=== PATIENT | female | born 1985 | race Caucasian/White ===

== ENCOUNTER 2024-08-19 20:39 | Emergency (ER) | payer OTHER ==
[2024-08-19 20:46] VITALS: TEMP 98.8
--- NOTE | 2024-08-19 21:29 | RADIOLOGY REPORT ---
CHEST RADIOGRAPH Indication: EPI GASTRIC PAIN Technique: Single frontal view of the chest was obtained Comparison: None FINDINGS: Lines and Tubes: None Lungs: No focal consolidation. Pleura: No effusion. No pneumothorax. Cardiomediastinal contours: Unremarkable Bones: No acute osseous abnormality. IMPRESSION: No acute cardiopulmonary disease.
[2024-08-19 22:58] VITALS: BP 116/82; PULSE 63; RESP 16; O2SAT 98
[2024-08-19 22:58] LABS: BASOPHILS % (AUTO) 0.4 % (0-1); EOSINOPHILS # (AUTO) 0.7 X10'3 (0-0.9); EOSINOPHILS % (AUTO) 4.9 % (0-6); HEMATOCRIT 37.1 % (35.0-45.0); HEMOGLOBIN 12.7 g/dl (12.0-16.0); LYMPHOCYTES # (AUTO) 1.8 X10'3 (1.1-4.8); LYMPHOCYTES % (AUTO) 13.4 % (21-51); MEAN CORPUSCULAR HEMOGLOBIN 30.6 PG (27.0-31.0); MEAN CORPUSCULAR HGB CONC 34.1 g/dL (33.0-36.5); MEAN CORPUSCULAR VOLUME 89.7 FL (78-98); MONOCYTES # (AUTO) 0.9 X10'3 (0-0.9); MONOCYTES % (AUTO) 6.9 % (2-12); NEUTROPHILS # (AUTO) 9.9 X10'3 (1.8-7.7); NEUTROPHILS % (AUTO) 74.4 % (42-75); PLATELET COUNT 214 X10'3 (140-440); RED BLOOD COUNT 4.14 X10'6 (4.20-5.60); RED CELL DISTRIBUTION WIDTH 12.6 % (11.5-14.5); WHITE BLOOD COUNT 13.3 X10'3 (4.5-11.0)
[2024-08-19 23:18] LABS: ALBUMIN 3.8 G/DL (3.4-5.0); ANION GAP 6 (8-16); BLOOD UREA NITROGEN 11 MG/DL (7-18); BUN/CREATININE RATIO 15.1 (10.0-20.0); CALCIUM 9.4 MG/DL (8.5-10.1); CHLORIDE 106 MMOL/L (99-107); CREATININE 0.73 MG/DL (0.40-0.90); GLUCOSE 88 MG/DL (70-104); POTASSIUM 4.3 MMOL/L (3.5-5.1); PRO BRAIN NATRIURETIC PEPTIDE 66 PG/ML (0-125); SODIUM 141 MMOL/L (135-145); TOTAL CARBON DIOXIDE 28.9 MMOL/L (24-32); eGFR 89 ML/MIN
--- NOTE | 2024-08-19 23:41 | Physician Documentation ---
History of Present Illness ~ Chief Complaint: Chest Wall Pain Stated Complaint: CHEST PAIN Time Seen by MD: 22:30 HPI This is a 39-year-old female who presents with epigastric and sternal chest pain described as pressure onset at rest that had an episode of radiation to left arm described as numbness lasting several hours today, patient reports the chest pain has resolved. Patient reports that chest pain was accompanied by small amount of shortness of breath as the pain was worsened by taking deep breaths and felt like as if she could not take a full breath, otherwise patient reports no provoking or palliating factors. Patient reports no cardiac history in herself or in her family. Patient reports no associated nausea or vomiting, or diaphoresis. Medication Reconciliation Allergies: Coded Allergies: No Known Allergies (Unverified , 08/19/24) Past Medical History Past Medical History: No Pertinent History Review of Systems ROS Sternal chest pain as stated above in the HPI, otherwise all systems are reviewed and negative. Physical Exam Vital Signs: Temperature: 98.8, Source: Temporal, Heart Rate: 63, Respiratory Rate: 16, BP: 116/82, Pulse Oximetry: 98 Oxygen Flow Rate: 0 Physical Exam VITALS: Reviewed and as above. GENERAL: Alert, nontoxic appearing, no apparent distress. RESPIRATORY: No increased work of breathing, no respiratory distress, speaking in full clear sentences, lung sounds clear in all harden CHEST: Nontender to palpation CV: Regular rate and rhythm no murmur BACK: No CVA tenderness Progress Results/Orders Results/Orders Orders - KWASI MOORE [employer] Monitor (08/19/24 22:38) Saline Lock (08/19/24 22:38) Oxygen (08/19/24 22:38) Completed Orders - KWASI MOORE [employer] Cbc/Diff (08/19/24 22:38) BMP (08/19/24 22:38) PBNP (08/19/24 22:38) Hs Troponin I W Calculations (08/19/24 22:38) Vital Signs 08/19/24 08/19/24 08/19/24 20:46 22:42 22:58 Temp 98.8 Pulse 72 63 Resp 16 16 B/P (MAP) 130/72 116/82 (93) Pulse Ox 97 98 O2 Flow Rate 0 0 Laboratory Tests Test 08/19/24 22:49 White Blood Count 13.3 H Red Blood Count 4.14 L Hemoglobin 12.7 Hematocrit 37.1 Mean Corpuscular Volume 89.7 Mean Corpuscular Hemoglobin 30.6 Mean Corpuscular Hemoglobin Concent 34.1 Red Cell Distribution Width 12.6 Platelet Count 214 Mean Platelet Volume 9.0 Neutrophils (%) (Auto) 74.4 Lymphocytes (%) (Auto) 13.4 L Monocytes (%) (Auto) 6.9 Eosinophils (%) (Auto) 4.9 Basophils (%) (Auto) 0.4 Neutrophils # (Auto) 9.9 H Lymphocytes # (Auto) 1.8 Monocytes # (Auto) 0.9 Eosinophils # (Auto) 0.7 Basophils # (Auto) 0.0 CBC Comment Sodium Level 141 Potassium Level 4.3 Chloride Level 106 Carbon Dioxide Level 28.9 Anion Gap 6 L Blood Urea Nitrogen 11 Creatinine 0.73 Estimated GFR/1.73 m2 89 BUN/Creatinine Ratio 15.1 Glucose Level 88 Calcium Level 9.4 Troponin I High Sensitivity 6 Pro-B-Type Natriuretic Peptide 66 Albumin 3.8 Chemistry Comments EKG/XRAY/CT/US/VASC/MRI EKG : Additional Comment EKG at 2053 interpreted my self as sinus rhythm at a rate of 70, normal axis, no ST segment elevation or depression Chest X-Ray : Additional Comments CHEST RADIOGRAPH Indication: EPI GASTRIC PAIN Technique: Single frontal view of the chest was obtained Comparison: None FINDINGS: Lines and Tubes: None Lungs: No focal consolidation. Pleura: No effusion. No pneumothorax. Cardiomediastinal contours: Unremarkable Bones: No acute osseous abnormality. IMPRESSION: No acute cardiopulmonary disease. Electronically Signed by:ANKITA ZAPIEN DO Date & Time: 08/19/242125 Dictated by: ANKITA ZAPIEN DO Dictation date and time: 08/19/242113 I have reviewed and agree with the radiology report. I have reviewed and interpreted the imaging as: No focal consolidation or pneumothorax Heart Score: Heart Score Response (Comments) Value History Moderate Suspicious 1 EKG Normal 0 Age <45 0 Risk Factors No known risk factors 0 Troponin Normal limit 0 Total 1 Medical Decision Making Findings This is a 39-year-old female presented with epigastric and sternal chest pain described as pressure onset at rest with an episode of radiation to her left arm that has now resolved, report of chest pain with radiation was suspicious though it is reassuring troponins were not elevated and EKG did not demonstrate evidence of ischemia infarction. Additionally it was reassuring patient reported no history of cardiac risk factors, or cardiac disease in herself or family. PERC negative. Patient is otherwise well-appearing with a benign physical exam and stable vital signs, remainder of lab work did not demonstrate evidence of significant electrolyte or metabolic abnormality. I discussed with the patient the need for outpatient follow up with primary care provider which she verbalized understanding of, patient provided home care instructions and return to care precautions which she verbalized understanding of. Differential Dx:Considerations: Include: aortic dissection, chest wall pain, cholelithiasis, costochondritis, esophageal reflux/spasm, gastritis, myocardial infarction, pericarditis, pancreatitis, pneumonia, pneumothorax, pulmonary embolus Departure Disposition: HOME / SELF CARE / HOMELESS Impression: Primary Impression: Chest pain Qualified Codes: R07.9 - Chest pain, unspecified Condition: Improved Discharge Instructions: Nonspecific Chest Pain, Adult Additional Instructions: Please follow up with your primary care provider in the next few days. Please return to the emergency department for any new or worsening concerning symptoms. Referrals: NO PRIMARY CARE PROVIDER (PCP) Education Educated: Patient Educated regarding: diagnosis, treatment, prognosis, need for follow up Signature Scribe Signature: No scribe Attestation: The note accurately reflects work and decisions made by me.ZANDER Monae 08/20/24 02:02 KWASI MOORE Aug 19, 2024 23:41
--- NOTE | 2024-08-20 07:09 | ELECTROCARDIOGRAPH REPORT ---
[facility] Test Date: 2024-08-19 Test Time: 20:54:43 Pat Name: CHEYANNE ARROYO Department: EMERGENCY ROOM Room: Gender: F Credit Reporter: : 1985 Requested By: BAYLEE LOPEZ Order Number: [id number] Reading MD: Dr. Rodrigo Garcia Measurements Intervals [place] Rate: 70 P: -45 VA: 148 QRS: 90 QRSD: 86 T: 60 QT: 390 QTc: 421 Interpretive Statements Sinus or ectopic atrial rhythm Borderline right axis deviation Nonspecific repol abnormality, lateral leads ST elevation, consider anterolateral injury Electronically Signed On 08-21-2024 6:35:[address] Rodrigo Garcia Please click the below link to view image of tracing.
== END 2024-08-19 23:49 | disposition home or self-care (01) ==
LOC: ER 20:40
DX: R07.2 Precordial pain (principal)
CPT/HCPCS: 36415; 71045; 80048; 83880; 84484; 85025; 93005; 99285